=== PATIENT | male | born 2005 | race African-American/Black ===

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

== ENCOUNTER 2025-06-10 14:53 | Emergency (ER) | payer OTHER, SELFPAY ==
--- OUTSIDE RECORDS SUMMARY | 2025-06-10 14:56 | XMS_ITS | Referral Summary ---
Author Organization [facility] Address [address] [place] [address] Care Team Providers Care Machine Steak Tenderizer Name Role Phone Unknown, Notinfile Primary Care Provider Unavail able Encounters Date Type Department Care Team Description 05/17/2025 1:27 AM CDT - 05/17/2025 2:31 AM CDT Emergency [facility] Emergency Department [address] [place] [address] Nash Albarado MD Intractable headache, unspecified chronicity pattern, unspecified headache type (Primary Dx) Discharge Disposition: Discharge to home or self care from Last 3 Months Allergies No known active allergies Medications ibuprofen (ADVIL,MOTRIN) 600 mg tablet Take 1 tablet (600 mg total) by mouth every 6 (six) hours as needed for pain 30 tablet 05/17/2025 Active Active Problems No known active problems Social History Tobacco Use Types Packs/Day Years Used Date Smoking Tobacco: Never Alcohol Use Standard Drinks/Week Comments Not Currently 0 (1 standard drink = 0.6 oz pur e alcohol) Personal Safety Answer Date Recorded Have you ever been in or are you currently in a harmful physical or emotional relationship or is someone making you feel afraid or unsafe? 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 Gender Identity Not on file Sexual Orientation Not on file Last Filed Vital Signs Vital Sign Reading Time Taken Comments Blood Pressure 127/76 05/17/2025 2:00 AM CDT Pulse 58 05/17/2025 2:25 AM CDT Temperature 37.2 C (99 F) 05/16/2025 10:00 PM CDT Respiratory Rate 16 05/16/2025 10:00 PM CDT Oxygen Saturation 98% 05/17/2025 2:25 AM CDT Inhaled Oxygen Concentration - - Weight 64.9 kg (143 lb 1.3 oz) 05/16/2025 10:00 PM CDT Height 177.8 cm (5' 10) 05/16/2025 10:00 PM CDT Body Mass Index 20.53 05/16/2025 10:00 PM CDT Plan of Treatment Not on file Insurance [facility] Care Teams Machine Steak Tenderizer Relationship Specialty Start Date End Date Unknown, Notinfile PCP - General 02/02/24
--- OUTSIDE RECORDS SUMMARY | 2025-06-10 14:56 | XMS_ITS | Clinical Summary ---
Author Organization [facility] Address [address] [place] [address] Care Team Providers Care Assembly Inspector Name Role Phone Unknown, Notinfile Primary Care Provider Unavail able Allergies No known active allergies Medications ibuprofen (ADVIL,MOTRIN) 600 mg tablet Take 1 tablet (600 mg total) by mouth every 6 (six) hours as needed for pain 30 tablet 05/17/2025 Active Active Problems No known active problems Encounters Date Type Department Care Team Description 05/17/2025 1:27 AM CDT - 05/17/2025 2:31 AM CDT Emergency [facility] Emergency Department [address] [place] [address] Nash Albarado MD Intractable headache, unspecified chronicity pattern, unspecified headache type (Primary Dx) Discharge Disposition: Discharge to home or self care from Last 3 Months Social History Tobacco Use Types Packs/Day Years [...] on file 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 Gender Identity Not on file Sexual Orientation Not on file Obstetrics History Last Filed Vital Signs Vital Sign Reading [...] 05/16/2025 10:00 PM CDT Plan of Treatment Health Maintenance Due Date Last Done Comments Depression Screening 2003 Hepatitis C Screening 2003 Meningococcal B Vaccine (2 o f 2 - Bexsero SCDM 2-dose series) 12/30/2020 08/29/2020, 09/06/2019 Regular Well Visit/Exam 18-64 2021 DTaP/Tdap/Td Vaccine (7 - Td or Tdap) 07/19/2025 07/19/2015, 09/20/2007, 09/20/2007, Additional history exists Influenza Vaccine (#1) 2025 9, 08/11/2017, 09/14/2012, Additional history exists Hepatitis B Screening Completed 02/08/2004 , 02/08/2004, 2003, Additional history exists Pneumococcal vaccine <65 Completed 09/20/2007 Varicella Vaccines Completed 02/15/2008, 08/06/2004 Meningococcal Vaccine Completed 09/06/2019, 015 HPV Vaccines Completed 08/29/2020, 07/22/2016 Insurance [facility] Care Teams Assembly Inspector Relationship Specialty Start Date End Date Unknown, Notinfile PCP - General 02/02/24
--- OUTSIDE RECORDS SUMMARY | 2025-06-10 14:56 | XMS_ITS | Continuity of Care Document ---
Author Organization [facility] Address [address] [place] [address] Phone Care Team Providers Care Buckle Gluer Name Role Phone Unavailable Unavailable Unavailable Procedures Procedure Date HCY - Age 1-4, Established Patient, Full Screening VFC-MEASLES, MUMPS & RUBELLA VIRUS VACCINE (MMR), LIVE, SUBQ/JET INJECTION USE VFC-DIPHTHERIA, TETANUS TOXO IDS, & ACELLULAR PERTUSSIS VACCINE (DTAP), IM USE VFC-POLIOVIRUS VACCINE, INACTIVATED, (IP V), SUBQ USE SKIN TEST; TUBERCULOSIS, INTRADERMAL Aug URNLS DIP STICK/TABLET RGNT AUTO W/O ROCIO VFC-HEPATITIS A VACCINE, PED IATRIC/ADOLESCENT DOSAGE-2 DOSE SCHEDULE, IM USE BLOOD COUNT; COMPLETE (CBC), AUTOMATED (HGB, HCT, RBC, WBC AND PLATELET COUNT) LEAD Topical fluor w/o prophy chi Comprehensve oral evaluation Oral hygiene instruction Dental prophylaxis child HCY - Age 1-4, Established Patient, Full Screening VFC-HEPATITIS A VACCINE, PED IATRIC/ADOLESCENT DOSAGE-2 DOSE SCHEDULE, IM USE BLOOD COUNT; COMPLETE (CBC), AUTOMATED (HGB, HCT, RBC, WBC AND PLATELET COUNT) Advance Directives Directive Yes / No Effective Date File Name No Information Encounters Encounter Description Practice Location Reason(s) For Visit Diagnoses Date Provider Providers Copied on Encounter [facility] , [address], [place], [place], [id number], [place] tel:[phone] Historic Immunization Location No Information 9 No Information HCY - Age 1-4, Established Patient, Full Screening [facility] , [address], [place], [place], [id number], [place] tel:[phone] [facility] ISSUE OF MED CERTIF NECVACCIN FOR SINGL DIS NOSROUTIN CHILD HEALTH EXAM 7 No Information [facility] , [address], [place], [place], [id number], [place] tel:[phone] [facility] DENTAL EXAMINATION 7 No Information HCY - Age 1-4, Established Patient, Full Screening [facility] , [address], [place], [place], [address], [place] tel:[phone] [facility] ROUTIN CHILD HEALTH EXAMANEMIA NOSVACCIN FOR SINGL DIS NOS 6 No Information Family History Family Member Type Diagnosis Age At Onset No Information Immunizations Vaccine Date Status Comments VFC-DIPHTHERIA, TETANUS TOXOIDS, & ACELLULAR PERTUSSIS VACCINE (DTAP), IM USE administered Source: New Immuniza tion Record VFC-MEASLES, MUMPS & RUBELLA VIRUS VACCINE (MMR), LIVE, SUBQ/JET INJECTION USE administered Source: New Immun ization Record VFC-POLIOVIRUS VACCINE, INACTIVATED, (IPV), SUBQ USE administered Source: New Immunization Record VFC-HEPATITIS A VACCINE, PEDIATRIC/ADOLESCENT DOSAGE-2 DOSE SCHEDULE, IM USE administered Source: New Immuni zation Record VFC-HEPATITIS A VACCINE, PEDIATRIC/ADOLESCENT DOSAGE-2 DOSE SCHEDULE, IM USE administered Source: New Immuni zation Record VFC-POLIOVIRUS VACCINE, INACTIVATED, (IPV), SUBQ USE administered Source: New Immunization Record VFC-HEMOPHILUS INFLUENZA B VACCINE (HIB), HBOC CONJUGATE (4 DOSE SCHEDULE), IM USE administered Source: New Im munization Record VFC-PNEUMOCOCCAL CONJUGATE VACCINE, POLYVALENT, CHILDREN < 5 YEARS, IM USE administered Source: New Immuniza tion Record VFC-DIPHTHERIA, TETANUS TOXOIDS, & ACELLULAR PERTUSSIS VACCINE (DTAP), IM USE administered Source: New Immuniza tion Record VFC-MEASLES, MUMPS & RUBELLA VIRUS VACCINE (MMR), LIVE, SUBQ/JET INJECTION USE administered Source: New Immun ization Record VFC-VARICELLA VIRUS VACCINE, LIVE, SUBQ USE administered Source: New Immuniza tion Record VFC-HEPATITIS B VACCINE, PEDIATRIC/ADOLESCENT, (3-DOSE SCHEDULE), IM USE administered Source: New Immuniza tion Record VFC-HEMOPHILUS INFLUENZA B VACCINE (HIB), HBOC CONJUGATE (4 DOSE SCHEDULE), IM USE administered Source: New Im munization Record VFC-PNEUMOCOCCAL CONJUGATE VACCINE, POLYVALENT, CHILDREN < 5 YEARS, IM USE administered Source: New Immuniza tion Record VFC-DIPHTHERIA, TETANUS TOXOIDS, & ACELLULAR PERTUSSIS VACCINE (DTAP), IM USE administered Source: New Immuniza tion Record VFC-POLIOVIRUS VACCINE, INACTIVATED, (IPV), SUBQ USE administered Source: New Immunization Record VFC-HEPATITIS B VACCINE, PEDIATRIC/ADOLESCENT, (3-DOSE SCHEDULE), IM USE administered Source: New Immuniza tion Record VFC-HEMOPHILUS INFLUENZA B VACCINE (HIB),PRP-T CONJUGATE (4 DOSE SCHEDULE), IM USE administered Source: New Im munization Record VFC-PNEUMOCOCCAL CONJUGATE VACCINE, POLYVALENT, CHILDREN < 5 YEARS, IM USE administered Source: New Immuniza tion Record VFC-DIPHTHERIA, TETANUS TOXOIDS, & ACELLULAR PERTUSSIS VACCINE (DTAP), IM USE administered Source: New Immuniza tion Record VFC-POLIOVIRUS VACCINE, INACTIVATED, (IPV), SUBQ USE administered Source: New Immunization Record VFC-HEPATITIS B VACCINE, PEDIATRIC/ADOLESCENT, (3-DOSE SCHEDULE), IM USE administered Source: New Immuniza tion Record VFC-HEMOPHILUS INFLUENZA B VACCINE (HIB), HBOC CONJUGATE (4 DOSE SCHEDULE), IM USE administered Source: New Im munization Record VFC-PNEUMOCOCCAL CONJUGATE VACCINE, POLYVALENT, CHILDREN < 5 YEARS, IM USE administered Source: New Immuniza tion Record VFC-DIPHTHERIA, TETANUS TOXOIDS, & ACELLULAR PERTUSSIS VACCINE (DTAP), IM USE administered Source: New Immuniza tion Record Payers Payer name Insurance type Covered republican ID Authoriza tion(s) No Information Social History Type Description Quantity Date Captured Comments Sex Male Smoking Status No Information Chief Complaint And Reason For Visit No Information Reason For Referral Reason For Referral No Information History Of Present Illness Encounter Date Complaint History Of Prese nt Illness No Information Functional Status Date Functional Assessmen t No Information Instructions Date Instruction Additional Infor mation No Information Assessments Type Assessment Date No Information Patient Care Teams Name Effective Dates (start - stop) Status Members No Information
--- OUTSIDE RECORDS SUMMARY | 2025-06-10 14:56 | XMS_ITS | Clinical Summary ---
Author Organization [facility] Address [address] [place] [address] Care Team Providers Care Cigar Making Machine Operator Name Role Phone Alicia Caro MD Primary Care Provider [phone] Source Comments [facility],non-owned Affiliates and Associated Physician Practices is amultiple site organization consisting of ambulatory clinics and hospital sitesin [place], [place], [place]. This disclosure is being madepursuant to the Care Everywhere program and may not contain all information available regarding this patient. Last updated 18.[facility] [employer] Allergies No known active allergies Medications * Be aware that medications may not be up to date on this document. Alwaysverify current medications with the patient. ibuprofen (MOTRIN) 50 MG chew tablet Take 1 Tab by mouth every 6 hours as needed. 30 Tab 0 07/27/2014 Active benzoyl peroxide (BENZAC AC) 5 % gel Apply to affected area once daily 90 g 5 05/20/2018 Active Active Problems Problem Noted Date Diagnosed Date Acne vulgaris 05/20/2018 Overview (05/20/2018): onset ~fall 201605/20/18 mild comedonal, face only; Rx BP wash/gel + OTC Differin gel Family History Medical History Relation Name Comments Sickle Cell Trait Father Relation Name Status Comments Father Social History Tobacco Use Types Packs/Day Years Used Date Smoking Tobacco: Never Alcohol Use Standard Drinks/Week Comments No 0 (1 standard drink = 0.6 oz pur e alcohol) Sex and Gender Information Value Date Recorded Sex Assigned at Not on file 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 Gender Identity Not on file Sexual Orientation Not on file Last Filed Vital Signs Vital Sign Reading Time Taken Comments Blood Pressure 89/54 03/02/2015 6:40 PM CDT Pulse 81 03/02/2015 6:40 PM CDT Temperature 36.7 C (98.1 F) 03/02/2015 6:40 PM CDT Respiratory Rate 20 03/02/2015 6:40 PM CDT Oxygen Saturation 100% 03/02/2015 6:40 PM CDT Inhaled Oxygen Concentration - - Weight 51.9 kg (114 lb 6.7 oz) 05/20/2018 2:31 P M CDT Height 170.5 cm (5' 7.13) 05/20/2018 2:31 PM CD T Body Mass Index 17.85 05/20/2018 2:31 PM CDT Plan of Treatment Health Maintenance Due Date Last Done Comments HIV SCREENING 2018 HPV VACCINE (1 - Male 3-dose series) 2018 MENINGOCOCCAL (Group B) VACC INE SHARED DECISION-MAKING (1 of 2 - Standard) 2019 HEPATITIS C SCREENING 07/31/2021 DTAP/TDAP/TD VACCINES (1 - Tdap) 2022 HEPATITIS B VACCINE (1 of 3 - 19+ 3-dose series) 2022 COVID-19 VACCINE (1 - 2023-2 5 season) 2024 DEPRESSION SCREENING 11/23/2024 INFLUENZA VACCINE (#1) 2025 ZOSTER VACCINE (1 of 2) 2053 HIB VACCINE Aged Out No longer eligi ble based on patient's age to complete this topic MENINGOCOCCAL GROUPS A/C/Y/W VACCINE Aged Out No longer eligible b ased on patient's age to complete this topic PNEUMOCOCCAL VACCINE Aged Out No long er eligible based on patient's age to complete this topic Insurance [facility] Care Teams Cigar Making Machine Operator Relationship Specialty Start Date End Date Alicia Caro MD PCP - General Pediatrics 07/27/14
--- OUTSIDE RECORDS SUMMARY | 2025-06-10 14:56 | XMS_ITS | Clinical Summary ---
Author Organization [facility] Address [address] [place] [address] Care Team Providers Care Neonatal Intensive Care Unit Nurse Name Role Phone Raymundo Cantu MD, Kristin Primary Care Provider Allergies No known active allergies Medications ibuprofen (MOTRIN) 200 MG Tablet Take 2 Tabs by mouth every 8 hours as needed for Fever. 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 Gender Identity Not on file Sexual Orientation Not on file Last Filed Vital Signs Vital Sign Reading Time Taken Comments Blood Pressure 117/49 03/31/2019 10:41 PM CDT Pulse 72 03/31/2019 10:41 PM CDT Temperature 36.1 C (96.9 F) 03/31/2019 8:49 PM CDT Respiratory Rate 20 03/31/2019 10:41 PM CDT Oxygen Saturation 100% 03/31/2019 10:41 PM CDT Inhaled Oxygen Concentration - - Weight 56.7 kg (125 lb) 03/31/2019 8:49 PM CDT Height 177.8 cm (5' 10) 03/31/2019 8:49 PM CDT Body Mass Index 17.94 03/31/2019 8:49 PM CDT Plan of Treatment Health Maintenance Due Date Last Done Comments Hepatitis C Virus (HCV) Screening 2003 Hepatitis B Immunization (2 of 3 - 3-dose series) 03/07/2004 02/08/2004 Meningococcal B Immunization (2 of 2 - Bexsero SCDM 2-dose series) 12/30/2020 08/29/2020, 09/06/2019 SARS-COV-2 Immunization ( season) 2024 Influenza Immunization (#1) 07/24/202508/23, 08/11/2017, 09/14/2012, Additional history exists Respiratory Syncytial Virus (RSV) Immunization (Adult) (1 - 1-dose 75+ series) 2078 Hepatitis A Immunization Discontinued 11/12/2006 Measles Mumps Rubella (MMR) Immunization Discontinued 09/20/2007, 08/06/2004 Pneumococcal Immunization Combined Aged Out 09/20/2007 No longer eligible based on patient's age to complete this topic Varicella Immunization Discontinued 02/15/2008, 2003 DTaP/Tdap/Td Immunization Discontinued 2014, 09/20/2007, 11/07/2004, Additional history exists TdaP Immunization Completed 07/19/2015 Meningococcal Immunization (ACWY) Completed 09/06/2019, 07/19/2015 Human Papillomavirus (HPV) Immunization Completed 08/29/2020, 07/22/2016 Rotavirus Immunization Aged Out No lo nger eligible based on patient's age to complete this topic Insurance MEDICAID [place] Care Teams Neonatal Intensive Care Unit Nurse Relationship Specialty Start Date End Date Dulce Maria Fonseca MD [address] [place] [address] PCP - General Pediatrics 10/25/17
--- OUTSIDE RECORDS SUMMARY | 2025-06-10 15:01 | XMS_ITS | Continuity of Care Document ---
Author Organization [facility] Address [address] [place] [address] Phone Care Team Providers Care Roofing Contractor Name Role Phone Unavailable Unavailable Unavailable Procedures Procedure Date LEAD BLOOD COUNT; COMPLETE (CBC), AUTOMATED (HGB, HCT, RBC, WBC AND PLATELET COUNT) VFC-HEPATITIS A VACCINE, PED IATRIC/ADOLESCENT DOSAGE-2 DOSE SCHEDULE, IM USE URNLS DIP STICK/TABLET RGNT AUTO W/O ROCIO SKIN TEST; TUBERCULOSIS, INTRADERMAL Aug VFC-POLIOVIRUS VACCINE, INACTIVATED, (IP V), SUBQ USE VFC-DIPHTHERIA, TETANUS TOXO IDS, & ACELLULAR PERTUSSIS VACCINE (DTAP), IM USE VFC-MEASLES, MUMPS & RUBELLA VIRUS VACCINE (MMR), LIVE, SUBQ/JET INJECTION USE HCY - Age 1-4, Established Patient, Full Screening Dental prophylaxis child Oral hygiene instruction Comprehensve oral evaluation Topical fluor w/o prophy chi BLOOD COUNT; COMPLETE (CBC), AUTOMATED (HGB, HCT, RBC, WBC AND PLATELET COUNT) VFC-HEPATITIS A VACCINE, PED IATRIC/ADOLESCENT DOSAGE-2 DOSE SCHEDULE, IM USE HCY - Age 1-4, Established Patient, Full Screening Advance Directives Directive Yes / No Effective Date File Name No Information Encounters Encounter Description Practice Location Reason(s) For Visit Diagnoses Date Provider Providers Copied on Encounter [email or web address] , [address], [place], [place], [id number], [place] tel:[phone] Historic Immunization Location No Information 9 No Information HCY - Age 1-4, Established Patient, Full Screening [email or web address] , [address], [place], [place], [address], [place] tel:[phone] [facility] ISSUE OF MED CERTIF NECVACCIN FOR SINGL DIS NOSROUTIN CHILD HEALTH EXAM 7 No Information [facility] , [address], [place], [place], [address], [place] tel:[phone] [facility] DENTAL EXAMINATION 7 No Information HCY - Age 1-4, Established Patient, Full Screening [email or web address] , [address], [place], [place], [address], [place] tel:[phone] [facility] ROUTIN CHILD HEALTH EXAMANEMIA NOSVACCIN FOR SINGL [...] Record Payers Payer name Insurance type Covered democrat ID Authoriza tion(s) No Information Social History [...]
[2025-06-10 15:02] VITALS: BP 137/80; PULSE 63; RESP 18; TEMP 36.6; O2SAT 100
--- NOTE | 2025-06-10 15:13 | ED.MALEGU ---
HPI - Male Genitourinary General Chief complaint: Urogenital-Male Stated complaint: Unspecified Time Seen by Provider: 06/10/25 15:14 Source: patient and RN notes reviewed Mode of arrival: ambulatory Limitations: no limitations History of Present Illness HPI Narrative: 19 y/o male presented for STD testing. Endorses burning with urination and frequent clear urethral discharge x1 week. Admits to unprotected sexual activity with a new partner one week ago, denies known exposure. Pt is concerned for chlamydia based on his internet research. Denies lesions, hematuria, n/v/d/f/c. Related Data Allergies Allergy/AdvReac Type Severity Reaction Status Date / Time No Known Allergies Allergy Verified 06/10/25 15:14 Review of Systems Review of Systems: CONSTITUTIONAL: Denies body aches, fever, chills, or sweats. CARDIOVASCULAR: Denies chest pain, palpitations, or edema. RESPIRATORY: Denies cough or dyspnea. GASTROINTESTINAL: Denies abdominal pain, nausea, vomiting, or diarrhea. GENITOURINARY: Reports dysuria, discharge denies frequency, urgency, hematuria, flank pain SKIN: Denies rash, itching MUSCULOSKELETAL: Denies back pain or myalgia. [facility] Past Medical History Medical History (Updated 06/10/25 @ 15:23 by Carie Garvey, JHONATHAN) Right arm fracture Seasonal allergic rhinitis Family History Family History (Updated 10/23/21 @ 09:07 by Caitlyn Silverman NP) Other Family history non-contributory Social History Social History (Updated 10/23/21 @ 09:07 by Caitlyn Silverman NP) Smoking status: Never smoker Alcohol intake: never Substance use: never Living arrangements: with family Occupation/Education: student Gender identity (if verbalized by the patient): Male Comments At time of signature, I have reviewed and agree with nursing past medical, surgical, social and family history unless otherwise noted. Please see nursing chart for further information. There is no relevant family history pertinent to the presenting complaint Exam Narrative: GENERAL: Well-appearing and in no acute distress. ENT: Mucous membranes pink and moist. NECK: Normal AROM. Supple. CHEST: No respiratory distress. Clear to auscultation. HEART: Regular rate and rhythm. ABDOMEN: Soft, nontender, nondistended, normal active bowel sounds. No CVA tenderness SKIN: Warm, dry, no rash. NEURO: No focal deficits. Alert and oriented x3. Gait steady. PSYCH: Normal affect. Course Course Emergency Course: Patient is aware of diagnosis, understands and agrees to treatment plan. Anticipatory guidance given. Patient agrees to follow-up as directed and is aware of reasons to seek care at the emergency department. Portions of this record may have been created with voice recognition software Level of Care: Express Care Visit Vital Signs Vital signs: Vital Signs Temperature 97.9 F 06/10/25 15:02 Pulse Rate 63 06/10/25 15:02 Respiratory Rate 18 06/10/25 15:02 Blood Pressure 137/80 06/10/25 15:02 Pulse Oximetry 100 06/10/25 15:02 Oxygen Delivery Room Air 06/10/25 15:02 Temperature 97.9 F 06/10/25 15:02 Pulse Rate 63 06/10/25 15:02 Respiratory Rate 18 06/10/25 15:02 Blood Pressure 137/80 06/10/25 15:02 Pulse Oximetry 100 06/10/25 15:02 Oxygen Delivery Room Air 06/10/25 15:02 Reviewed MDM - Male Genitourinary MDM Narrative Medical decision making narrative: Patient presenting with concern for STD. Urine specimen collected for GC, chlamydia, trich. Informed Pt will be contacted w/ results when they become available if they are positive. Discussed with patient that it takes up to 5 days for results of cultures to be released and explained that we may treat empirically at this time. Agreeable to treatment for chlamydia only at this time. He is aware he will need to return for treatment of gonorrhea should it be positive. I have instructed the patient to return to the ER at any time if there are any new or worsening symptoms. The patient expressed understanding of and agreement with this plan. Differential Diagnosis Differential diagnosis: Likely urinary tract infection, urethritis, epididymitis and other (STD) Discharge Plan Discharge Clinical Impression: Concern about STD in male without diagnosis Patient Disposition: Home Condition: Stable Instructions: Antibiotic Form, Sexually Transmitted Diseases (ED), Safe Sex Practices (ED) Additional Instructions: Your urine has been sent off to test for gonorrhea, chlamydia, and trichomonas infections. You will be called if any of your tests come back positive. These tests can take up to 5 days to come back. Prescriptions for Doxycycline has been sent to your pharmacy to cover for chlamydia. If your tests come back positive for gonorrhea or trichomonas you will need further treatment. We discussed those treatments. You will need to notify any partners that you have so they can be tested and treated. To avoid reinfection, you are advised to abstain from sexual intercourse until you and sex partners have been treated (ie, after completing the 7-day antibiotic regimen, and any symptoms have resolved. If your tests come back negative and you are still experiencing symptoms, please follow-up with your PCP for further evaluation and treatment. If your symptoms worsen to include fever, abdominal pain, or back pain, please go to the hospital immediately. Patient Language: Yakut Prescriptions: New doxycycline hyclate 100 mg tablet 100 mg PO BID 7 Days Qty: 14 0RF Follow-up/Referrals: PHYSICIAN,PIPELINE EXECUTIVE [Primary Care Provider] - Time of Disposition: 15:30
[2025-06-10 19:04] LABS: Trichomonas Vag PCR NOT DETECTED (NOT DETECTE)
== END 2025-06-10 15:32 | disposition home or self-care (01) ==
PROVIDERS: Emergency Provider Nurse Practitioner Family
DX: R30.0 Dysuria (principal); Z11.3 Encounter for screening for infections with a predominantly sexual mode of transmission
CPT/HCPCS: 87491; 87591; 87661; 99213; G0463

== ENCOUNTER 2025-06-11 16:09 | Emergency (ER) | payer OTHER, SELFPAY ==
--- OUTSIDE RECORDS SUMMARY | 2025-06-11 16:10 | XMS_ITS | Clinical Summary ---
Author Organization [facility] Address [address] [place] [address] Care Team Providers Care Manager Of Pharmacy Name Role Phone Alicia Caro MD Primary Care Provider [phone] Source Comments [facility],non-owned Affiliates and Associated Physician Practices is amultiple site organization consisting of ambulatory clinics and hospital sitesin [place], [place], [place] and [place]. This disclosure is being madepursuant to the Care Everywhere program and may not contain all information available regarding this patient. Last updated 18.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
--- OUTSIDE RECORDS SUMMARY | 2025-06-11 16:10 | XMS_ITS | Continuity of Care Document ---
Author Organization [facility] Address [address] [place] [address] Phone Care Team Providers Care Tribunal Member Name Role Phone Unavailable Unavailable Unavailable Procedures Procedure Date VFC-DIPHTHERIA, TETANUS TOXO IDS, & ACELLULAR PERTUSSIS VACCINE (DTAP), IM USE VFC-POLIOVIRUS VACCINE, INACTIVATED, (IP V), SUBQ USE VFC-HEPATITIS A VACCINE, PED IATRIC/ADOLESCENT DOSAGE-2 DOSE SCHEDULE, IM USE BLOOD COUNT; COMPLETE (CBC), AUTOMATED (HGB, HCT, RBC, WBC AND PLATELET COUNT) LEAD HCY - Age 1-4, Established Patient, Full Screening VFC-MEASLES, MUMPS & RUBELLA VIRUS VACCINE (MMR), LIVE, SUBQ/JET INJECTION USE URNLS DIP STICK/TABLET RGNT AUTO W/O ROCIO SKIN TEST; TUBERCULOSIS, INTRADERMAL Aug Comprehensve oral evaluation Topical fluor w/o prophy chi Oral hygiene instruction Dental prophylaxis child HCY - Age 1-4, Established Patient, Full Screening VFC-HEPATITIS A VACCINE, PED IATRIC/ADOLESCENT DOSAGE-2 DOSE SCHEDULE, IM USE BLOOD COUNT; COMPLETE (CBC), AUTOMATED (HGB, HCT, RBC, WBC AND PLATELET COUNT) Advance Directives Directive Yes / No Effective Date File Name No Information Encounters Encounter Description Practice Location Reason(s) For Visit Diagnoses Date Provider Providers Copied on Encounter [facility] , [address], [place], [place], [address], [place] tel:[phone] Historic Immunization Location No Information 9 No Information HCY - Age 1-4, Established Patient, Full Screening [facility] , [address], [place], [place], [id number], [place] tel:[phone] [facility] ISSUE OF MED CERTIF NECVACCIN FOR SINGL DIS NOSROUTIN CHILD HEALTH EXAM 7 No Information [facility] , [address], [place], [place], [address], [place] tel:[phone] [facility] DENTAL EXAMINATION 7 No Information HCY - Age 1-4, Established Patient, Full Screening [facility] , [address], [place], [place], [address], [place] tel:[phone] [facility] ROUTIN CHILD HEALTH EXAMANEMIA NOSVACCIN FOR SINGL [...] Record Payers Payer name Insurance type Covered libertarian ID Authoriza tion(s) No Information Social History [...]
--- OUTSIDE RECORDS SUMMARY | 2025-06-11 16:10 | XMS_ITS | Clinical Summary ---
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
--- OUTSIDE RECORDS SUMMARY | 2025-06-11 16:10 | XMS_ITS | Clinical Summary ---
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
--- OUTSIDE RECORDS SUMMARY | 2025-06-11 16:10 | XMS_ITS | Referral Summary ---
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
--- NOTE | 2025-06-11 16:11 | ED_ITS ---
HPI - Male Genitourinary General Chief complaint: Urogenital-Male Stated complaint: STD Exposure Source: patient and RN notes reviewed Mode of arrival: ambulatory Limitations: no limitations History of Present Illness HPI Narrative: 19 y/o male presented for Rocephin injection after receiving positive gonorrhea results today. Pt was treated in clinic yesterday for chlamydia, due to pt's suspicion. Pt is taking doxycycline as prescribed. Denies any questions at this time. Related Data Allergies Allergy/AdvReac Type Severity Reaction Status Date / Time No Known Allergies Allergy Verified 06/11/25 16:12 Review of Systems Review of Systems: CONSTITUTIONAL: Denies body aches, fever, chills, or sweats. CARDIOVASCULAR: Denies chest pain, palpitations, or edema. RESPIRATORY: Denies cough or dyspnea. GASTROINTESTINAL: Denies abdominal pain, nausea, vomiting, or diarrhea. GENITOURINARY: Reports discharge dysuria, denies frequency, urgency, hematuria, flank pain SKIN: Denies rash, itching, or wounds. MUSCULOSKELETAL: Denies back pain or myalgia. [facility] Past Medical History Medical History (Updated 06/11/25 @ 16:13 by Carie Garvey, TOBACCO STRIPPER) Right arm fracture Seasonal allergic rhinitis Family History Family History (Updated 10/23/21 @ 09:07 by Caitlyn Silverman NP) Other Family history non-contributory Social History Social History (Updated 10/23/21 @ 09:07 by Caitlyn Silverman NP) Smoking status: Never smoker Alcohol intake: never Substance use: never Living arrangements: with family Occupation/Education: student Gender identity (if verbalized by the patient): Male Comments At time of signature, I have reviewed and agree with nursing past medical, surgical, social and family history unless otherwise noted. Please see nursing chart for further information. There is no relevant family history pertinent to the presenting complaint Exam Narrative: GENERAL: Well-appearing and in no acute distress. ENT: Mucous membranes pink and moist. NECK: Normal AROM. Supple. CHEST: No respiratory distress. Clear to auscultation. HEART: Regular rate and rhythm. ABDOMEN: Soft, nontender, nondistended, normal active bowel sounds. No CVA tenderness SKIN: Warm, dry, no rash. NEURO: No focal deficits. Alert and oriented x3. Gait steady. PSYCH: Normal affect. Course Course Emergency Course: Patient is aware of diagnosis, understands and agrees to treatment plan. Anticipatory guidance given. Patient agrees to follow-up as directed and is aware of reasons to seek care at the emergency department. Portions of this record may have been created with voice recognition software Level of Care: Express Care Visit Vital Signs Vital signs: Reviewed MDM - Male Genitourinary MDM Narrative Medical decision making narrative: Pt presented for Rocephin to treat gonorrhea. 500mg IM given. Discussed physical exam findings, test results and safe sex practices. Pt will notify sexual partners. Advised supportive measures and signs/symptoms to go to the ER. Pt is appropriate for outpt treatment and f/u. Differential Diagnosis Differential diagnosis: Likely urinary tract infection, urethritis and other (gonorrhea, chlamydia) Discharge Plan Discharge Clinical Impression: Acute gonorrhea of genitourinary tract Patient Disposition: Home Condition: Stable Instructions: Antibiotic Form, Safe Sex Practices (ED), Gonorrhea (ED) Additional Instructions: You have been given Rocephin injection today to treat for gonorrhea You will need to notify any partners that you have so they can be tested and treated. To avoid reinfection, you are advised to abstain from sexual intercourse for 7 days after treatment, and any symptoms have resolved to prevent transmission. You can contact the health department to schedule a test of cure. Recommend safe sex practices to avoid infection. Follow up with your primary care provider as needed If your symptoms worsen to include fever, abdominal pain, or back pain, please go to the hospital immediately. Patient Language: Hungarian Prescriptions: No Action doxycycline hyclate 100 mg tablet 100 mg PO BID 7 Days Qty: 14 0RF Follow-up/Referrals: PHYSICIAN,YOUTH MINISTER [Primary Care Provider] - Time of Disposition: 16:21
--- OUTSIDE RECORDS SUMMARY | 2025-06-11 16:12 | XMS_ITS | Continuity of Care Document ---
Author Organization [facility] Address [address] [place] [address] Phone Care Team Providers Care Wood Milling Machine Tender Name Role Phone Unavailable Unavailable Unavailable Procedures [...] Diagnoses Date Provider Providers Copied on Encounter [facility] , [address], [place], [place], [id number], [place] tel:[phone] Historic Immunization Location No Information 9 No Information [facility] - Age 1-4, Established Patient, Full Screening [facility] , [address], [place], [place], [id number], [place] tel:[phone] [facility] ISSUE OF MED CERTIF NECVACCIN FOR SINGL DIS NOSROUTIN CHILD HEALTH EXAM 7 No Information [facility] , [address], [place], [place], [id number], [place] tel:[phone] [facility] DENTAL EXAMINATION 7 No Information [facility] - Age 1-4, Established Patient, Full Screening [facility] , [address], [place], [place], [id number], [place] tel:[phone] [facility] ROUTIN CHILD HEALTH EXAMANEMIA NOSVACCIN FOR SINGL [...] Record Payers Payer name Insurance type Covered alliance party ID Authoriza tion(s) No Information Social History [...]
[2025-06-11 16:20] VITALS: BP 133/73; PULSE 84; RESP 18; TEMP 37; O2SAT 99
[2025-06-11] MEDS: cefTRIAXone 500 MG, LIDOCAINE 1% LOCAL INJ 1 ML IM (16:23)
== END 2025-06-11 16:40 | disposition home or self-care (01) ==
PROVIDERS: Emergency Provider Nurse Practitioner Family
DX: A54.9 Gonococcal infection, unspecified (principal)
CPT/HCPCS: 96372; 99213; G0463; J0696; J2003